=== PATIENT | female | born 1950 | race African-American/Black ===

== ENCOUNTER 2019-07-25 11:36 | Emergency (ER) | payer MEDICARE, OTHER ==
[~2019-07-25] VITALS: Ht 157.5 cm; Wt 62.3 kg
[2019-07-25 11:37] VITALS: BP 133/76
[2019-07-25] MEDS ORDERED: POOR HISTORIAN PO (11:43)
[2019-07-25] MEDS ORDERED: ACETAMINOPHEN 325 MG TABLET PO ONE (13:00)
== END 2019-07-25 13:19 | disposition home or self-care (01) ==
LOC: EMS 11:37
DX: L60.0 Ingrowing nail (principal); F17.210 Nicotine dependence, cigarettes, uncomplicated; Z88.5 Allergy status to narcotic agent
CPT/HCPCS: 99406

== ENCOUNTER 2019-12-09 02:51 | Emergency (ER) | payer MEDICARE, OTHER ==
[~2019-12-09] VITALS: Ht 157.5 cm; Wt 63.6 kg
[2019-12-09 04:31] LABS: BASOPHILS % (AUTO) 3.3 % (0.0-2.0); EOSINOPHILS % (AUTO) 1.6 % (1.0-6.0); HEMATOCRIT 35.9 % (36-46); HEMOGLOBIN 12.3 g/dL (12.0-16.0); LYMPHOCYTES # (AUTO) 1.2 K/uL (1.0-4.8); LYMPHOCYTES % (AUTO) 28.7 % (22.0-44.0); MEAN CORPUSCULAR HEMOGLOBIN 30.5 pg (26.0-34.0); MEAN CORPUSCULAR HGB CONC 34.4 G/dL (31.0-37.0); MEAN CORPUSCULAR VOLUME 89 fL (80-100); MONOCYTES # (AUTO) 0.5 K/uL (0.1-1.0); NEUTROPHILS # (AUTO) 2.2 K/uL (1.8-7.7); NEUTROPHILS % (AUTO) 53.4 % (40.0-70.0); PLATELET COUNT (AUTO) 232 K/uL (150-450); RED BLOOD CELL COUNT(AUTO) 4.05 MIL/uL (4.00-5.20); RED CELL DISTRIBUTION WIDTH 14.8 % (11.5-14.5)
[2019-12-09 04:36] LABS: CALCIUM, TOTAL 9.3 mg/dL (8.8-10.5); CREATININE 1.19 mg/dL (0.60-1.30); POTASSIUM 3.7 mmol/L (3.5-5.1)
[2019-12-09 04:40] LABS: INR 1.1 (0.9-1.1); PROTHROMBIN TIME 11.3 SEC (9.4-11.6)
[2019-12-09 05:00] LABS: ALBUMIN 3.7 g/dL (3.4-5.0); BILIRUBIN,TOTAL 0.7 mg/dL (0.1-1.0); TOTAL PROTEIN, SERUM 8.8 g/dL (6.4-8.2)
[2019-12-09 05:42] VITALS: BP 119/52
== END 2019-12-09 08:00 | disposition home or self-care (01) ==
LOC: EMS 02:51
DX: R05 Cough (principal); R06.02 Shortness of breath; R07.9 Chest pain, unspecified; I11.0 Hypertensive heart disease with heart failure; I50.9 Heart failure, unspecified; F17.210 Nicotine dependence, cigarettes, uncomplicated; Z20.828 Contact with and (suspected) exposure to other viral communicable diseases; Z88.5 Allergy status to narcotic agent
CPT/HCPCS: 36415; 71045; 80053; 82550; 83880; 84484; 85025; 85610; 85730; 93005; 99285; U0003

== ENCOUNTER 2022-01-05 12:48 | Inpatient (IN) | payer MEDICARE, OTHER ==
[~2022-01-05] VITALS: Ht 157.5 cm; Wt 66.7 kg
[~2022-01-05 12:48] MED LIST: ACET-2247 PO; DOCU-385 PO; FAMO20 PO; FURO20 PO; HEPA500018 SQ; MECL-134 PO
[2022-01-05 13:20] LABS: BASOPHILS % (AUTO) 0.6 % (0.0-2.0); EOSINOPHILS % (AUTO) 0.6 % (1.0-6.0); HEMATOCRIT 34.4 % (36-46); HEMOGLOBIN 11.5 g/dL (12.0-16.0); LYMPHOCYTES # (AUTO) 2.2 K/uL (1.0-4.8); LYMPHOCYTES % (AUTO) 19.3 % (22.0-44.0); MEAN CORPUSCULAR HEMOGLOBIN 29.4 pg (26.0-34.0); MEAN CORPUSCULAR HGB CONC 33.5 G/dL (31.0-37.0); MEAN CORPUSCULAR VOLUME 88 fL (80-100); MONOCYTES # (AUTO) 0.7 K/uL (0.1-1.0); NEUTROPHILS # (AUTO) 8.2 K/uL (1.8-7.7); NEUTROPHILS % (AUTO) 73.5 % (40.0-70.0); PLATELET COUNT (AUTO) 407 K/uL (150-450); RED BLOOD CELL COUNT(AUTO) 3.92 MIL/uL (4.00-5.20); RED CELL DISTRIBUTION WIDTH 13.7 % (11.5-14.5)
[2022-01-05 13:33] LABS: INR 1.1 (0.9-1.1); PROTHROMBIN TIME 11.4 SEC (9.4-11.6)
[2022-01-05 13:45] LABS: CALCIUM, TOTAL 10.6 mg/dL (8.8-10.5); CREATININE 1.15 mg/dL (0.60-1.30); POTASSIUM 3.5 mmol/L (3.5-5.1)
[2022-01-05 13:53] LABS: ALBUMIN 3.6 g/dL (3.4-5.0); BILIRUBIN,TOTAL 0.3 mg/dL (0.1-1.0); TOTAL PROTEIN, SERUM 9.2 g/dL (6.4-8.2)
[2022-01-05] MEDS ORDERED: KETOROLAC TROMETHAMINE 30 MG/ML VIAL IVP ONE (14:30)
[2022-01-05 16:26] LABS: GLUCOSE,POINT OF CARE 79 MG/DL (70-110)
[2022-01-05 18:09] LABS: COVID AG,FIA SOURCE NASAL SWAB
[2022-01-05 20:00] VITALS: BP 148/57
[2022-01-05] MEDS ORDERED: IPRATROPIUM BROMIDE 0.5 MG/2.5 ML NEB SOLUTION NEB PRN (22:00)
[2022-01-05] MEDS ORDERED: MAGNESIUM HYDROXIDE SUSPENSION 30 ML UDCUP PO PRN (22:00)
[2022-01-05] MEDS ORDERED: BISACODYL 10 MG RECTAL RECTAL SUPPOSITORY PR PRN (22:00)
[2022-01-05] MEDS ORDERED: ALBUTEROL SULFATE 2.5 MG/0.5 ML NEB SOLUTION NEB PRN (22:00)
[2022-01-05] MEDS ORDERED: ONDANSETRON HCL 4 MG/2 ML VIAL IVP PRN (22:00)
[2022-01-05] MEDS ORDERED: ACETAMINOPHEN 325 MG TABLET PO PRN (22:15)
[2022-01-06] MEDS: HEPARIN SODIUM,PORCINE 5,000 UNITS/ML VIAL SQ SCH ×4 (00:07→23:21)
[2022-01-06 03:16] VITALS: BP 109/57
[2022-01-06 07:38] VITALS: BP 96/54
[2022-01-06] MEDS: DOCUSATE SODIUM 100 MG CAPSULE PO SCH ×2 (08:19→20:04)
[2022-01-06] MEDS: PANTOPRAZOLE SODIUM 40 MG/VIAL IVP SCH (08:19)
[2022-01-06] MEDS ORDERED: SODIUM CHLORIDE 0.9% 1,000 ML ONE (10:48)
[2022-01-06 15:30] VITALS: BP 96/50
[2022-01-06] MEDS: ACETAMINOPHEN 325 MG TABLET PO PRN (16:40)
[2022-01-06 19:22] VITALS: BP 105/53
[2022-01-06] MEDS: ZOLPIDEM TARTRATE 5 MG TABLET PO PRN (23:34)
[2022-01-07 04:27] VITALS: BP 98/56
[2022-01-07 07:48] VITALS: BP 94/47
[2022-01-07] MEDS: DOCUSATE SODIUM 100 MG CAPSULE PO SCH ×2 (08:31→20:30)
[2022-01-07] MEDS: PANTOPRAZOLE SODIUM 40 MG/VIAL IVP SCH (08:31)
[2022-01-07] MEDS: HEPARIN SODIUM,PORCINE 5,000 UNITS/ML VIAL SQ SCH ×2 (08:31→17:13)
[2022-01-07] MEDS: ACETAMINOPHEN 325 MG TABLET PO PRN ×2 (08:34→20:30)
[2022-01-07 09:41] VITALS: BP 103/55
[2022-01-07 15:36] VITALS: BP 98/51
[2022-01-07 19:40] VITALS: BP 107/50
[2022-01-08] MEDS: HEPARIN SODIUM,PORCINE 5,000 UNITS/ML VIAL SQ SCH ×3 (00:07→15:50)
[2022-01-08] MEDS: ZOLPIDEM TARTRATE 5 MG TABLET PO PRN (01:28)
[2022-01-08 04:05] VITALS: BP 95/58
[2022-01-08 08:00] VITALS: BP 113/60
[2022-01-08] MEDS: DOCUSATE SODIUM 100 MG CAPSULE PO SCH ×2 (08:45→20:45)
[2022-01-08] MEDS: PANTOPRAZOLE SODIUM 40 MG/VIAL IVP SCH (08:45)
[2022-01-08 16:34] VITALS: BP 107/51
[2022-01-08 19:52] VITALS: BP 121/51
[2022-01-08] MEDS: CHOLECALCIFEROL (VIT D3) 2,000 UNITS [50 MCG] TABLET PO SCH (20:45)
[2022-01-09] MEDS: HEPARIN SODIUM,PORCINE 5,000 UNITS/ML VIAL SQ SCH ×3 (00:20→15:27)
[2022-01-09 04:30] VITALS: BP 102/52
[2022-01-09 07:40] VITALS: BP 99/56
[2022-01-09] MEDS: DOCUSATE SODIUM 100 MG CAPSULE PO SCH (08:26)
[2022-01-09] MEDS: CHOLECALCIFEROL (VIT D3) 2,000 UNITS [50 MCG] TABLET PO SCH (08:26)
[2022-01-09] MEDS: PANTOPRAZOLE SODIUM 40 MG/VIAL IVP SCH (08:26)
[2022-01-09] MEDS ORDERED: PANT-31 PO (12:59)
[2022-01-09] MEDS ORDERED: AUD NEB (13:01)
[2022-01-09] MEDS ORDERED: BISA10SU11 PR (13:02)
[2022-01-09] MEDS ORDERED: MAGN-169 PO (13:03)
[2022-01-09] MEDS ORDERED: CHOL200059 PO (13:07)
[2022-01-09 16:03] VITALS: BP 111/56
== END 2022-01-09 16:50 | DRG 544 ==
LOC: EMS 12:50 → 6N 19:15
PROVIDERS: ADMIT Hospitalist; ATTEND Hospitalist
DX: M80.051A Age-related osteoporosis with current pathological fracture, right femur, initial encounter for fracture (principal); F03.90 Unspecified dementia, unspecified severity, without behavioral disturbance, psychotic disturbance, mood disturbance, and anxiety; D72.829 Elevated white blood cell count, unspecified; I11.0 Hypertensive heart disease with heart failure; I50.9 Heart failure, unspecified; I73.9 Peripheral vascular disease, unspecified; J44.9 Chronic obstructive pulmonary disease, unspecified; Z20.822 Contact with and (suspected) exposure to COVID-19; F17.200 Nicotine dependence, unspecified, uncomplicated; Z88.5 Allergy status to narcotic agent
CPT/HCPCS: 70450; 71045; 72125; 72170; 73700; 80053; 82962; 85025; 85610; 85730; 87081; 93005; 97162; 97166; 97530; 97535; 99285; C9113; J1644; J1885; J7030; 36415-L1; 36415-TC

== ENCOUNTER 2024-09-18 12:10 | Inpatient (IN) | payer MEDICARE, OTHER ==
[~2024-09-18] VITALS: Ht 157.5 cm; Wt 81.9 kg
[~2024-09-18 12:10] MED LIST changes: +ALBU2.5V39 NEB; +BISA10SU11 PR; +CHOL200059 PO; -FAMO20 PO; -FURO20 PO; +MAGN-169 PO; -MECL-134 PO; +PANT-31 PO
[2024-09-18] MEDS: KETOROLAC TROMETHAMINE 30 MG/ML VIAL IM ONE (12:42)
[2024-09-18 14:18] LABS: EOSINOPHILS % (AUTO) 0.6 % (1.0-6.0); HEMATOCRIT 37.1 % (36-46); LYMPHOCYTES # (AUTO) 2.9 K/uL (1.0-4.8); MEAN CORPUSCULAR HEMOGLOBIN 29.3 pg (26.0-34.0); MEAN CORPUSCULAR HGB CONC 32.2 G/dL (31.0-37.0); MEAN CORPUSCULAR VOLUME 91 fL (80-100); NEUTROPHILS # (AUTO) 8.1 K/uL (1.8-7.7); NEUTROPHILS % (AUTO) 66.4 % (40.0-70.0); PLATELET COUNT (AUTO) 225 K/uL (150-450); RED BLOOD CELL COUNT(AUTO) 4.08 MIL/uL (4.00-5.20); RED CELL DISTRIBUTION WIDTH 14.7 % (11.5-14.5); WHITE BLOOD COUNT (AUTO) 12.2 K/uL (4.5-11.0)
[2024-09-18 14:27] LABS: ANION GAP 6 mmol/L (8-16); CALCIUM, TOTAL 9.5 mg/dL (8.8-10.5); CARBON DIOXIDE 30 mmol/L (22-29); CHLORIDE 106 mmol/L (98-107); CREATININE 0.74 mg/dL (0.60-1.30); GLOMERULAR FILTR. RATE CALC > 60 mL/min (>60); GLUCOSE,RANDOM 76 mg/dL (70-110); POTASSIUM 4.3 mmol/L (3.5-5.1); SODIUM SERUM 141 mmol/L (136-145); UREA NITROGEN, BLOOD 18 mg/dL (7-18)
[2024-09-18] MEDS ORDERED: ONDANSETRON HCL 4 MG/2 ML VIAL IVP PRN (14:45)
[2024-09-18 14:50] LABS: APPEARANCE,URINE CLEAR (CLEAR); BILIRUBIN,URINE NEGATIVE (NEGATIVE); COLOR,URINE LIGHT YELLOW (YELLOW); GLUCOSE, URINE (UA) NEGATIVE (NEGATIVE); KETONES,URINE TRACE mg/dL (NEGATIVE); LEUKOCYTE ESTERASE ,URINE TRACE (NEGATIVE); NITRATE,URINE NEGATIVE (NEGATIVE); OCCULT BLOOD,URINE SMALL (NEGATIVE); PH,URINE 6.5 (5.0-8.0); PROTEIN,URINE 30-70 mg/dL (NEGATIVE); SPECIFIC GRAVITIY, URINE 1.022 (1.003-1.030); UROBILINOGEN,URINE <=1.0 mg/dL (<=1.0)
[2024-09-18 15:15] LABS: BACTERIA,URINE Few /HPF (None Seen); SQUAMOUS EPITHELIAL CELL,UR Few /LPF (None Seen)
[2024-09-18] MEDS: RINGERS SOLUTION,LACTATED 1,000 ML IV SCH (15:18)
[2024-09-18] MEDS: CefTRIAXone 1 GM/DEXTROSE 50 ML IV SCH (15:28)
[2024-09-18] MEDS: HEPARIN SODIUM,PORCINE 5,000 UNITS/ML VIAL SQ SCH (15:28)
[2024-09-18] MEDS: ACETAMINOPHEN 325 MG TABLET PO PRN (15:28)
[2024-09-18] MEDS ORDERED: 0.9% SODIUM CHLORIDE 10 ML SYRINGE IVP ONE (15:44)
[2024-09-18] MEDS ORDERED: IOHEXOL 350 MG/ML 100 ML VIAL ONE ×3 (15:44→23:10)
[2024-09-18] MEDS ORDERED: SODIUM CHLORIDE 0.9% 0 ML ONE (15:45)
[2024-09-18] MEDS ORDERED: SODIUM CHLORIDE 0.9% 100 ML ONE ×2 (17:23→23:10)
[2024-09-18 17:26] LABS: TROPONIN I-HIGH SENSITIVITY 28 ng/L (<51)
[2024-09-18 19:52] VITALS: BP 134/62; PULSE 63; RESP 17; TEMP 98.2; O2SAT 100
[2024-09-18] MEDS ORDERED: CefTRIAXone 1 GM/DEXTROSE 50 ML IV SCH (22:15)
[2024-09-18 22:42] VITALS: BP 143/72; RESP 17; O2SAT 99
[2024-09-18 22:58] LABS: CHOL/HDL RATIO 1.8 (3.9-5.7); CHOLESTEROL 226 mg/dL (131-200); HDL CHOLESTEROL 127 mg/dL (40-60); LDL CHOL (CALC.) 93 mg/dL (0-130); TRIGLYCERIDES 30 mg/dL (15-150)
[2024-09-18 23:14] VITALS: BP 139/69; PULSE 64; RESP 17; TEMP 98.1; O2SAT 100
[2024-09-19] MEDS: ASPIRIN 81 MG CHEWABLE TABLET PO ONE (00:12)
[2024-09-19] MEDS: ATORVASTATIN CALCIUM 40 MG TABLET PO ONE (00:13)
[2024-09-19] MEDS: ACETAMINOPHEN 500 MG TABLET PO SCH (00:13)
[2024-09-19] MEDS: AZITHROMYCIN 500 MG/NS 250 ML IV SCH (00:14)
[2024-09-19] MEDS ORDERED: SODIUM CHLORIDE 0.9% 250 ML IV ONE (00:23)
[2024-09-19 03:51] VITALS: BP 137/67; PULSE 69; RESP 17; TEMP 98.2; O2SAT 100
[2024-09-19 05:56] LABS: EOSINOPHILS % (AUTO) 2.3 % (1.0-6.0); HEMATOCRIT 35.6 % (36-46); HEMOGLOBIN 11.7 g/dL (12.0-16.0); LYMPHOCYTES # (AUTO) 2.4 K/uL (1.0-4.8); LYMPHOCYTES % (AUTO) 34.8 % (22.0-44.0); MEAN CORPUSCULAR HGB CONC 32.8 G/dL (31.0-37.0); MEAN CORPUSCULAR VOLUME 91 fL (80-100); MONOCYTES # (AUTO) 0.5 K/uL (0.1-1.0); MONOCYTES % (AUTO) 7.7 % (2.0-9.0); NEUTROPHILS # (AUTO) 3.8 K/uL (1.8-7.7); NEUTROPHILS % (AUTO) 54.2 % (40.0-70.0); PLATELET COUNT (AUTO) 223 K/uL (150-450); RED BLOOD CELL COUNT(AUTO) 3.89 MIL/uL (4.00-5.20); RED CELL DISTRIBUTION WIDTH 14.5 % (11.5-14.5)
[2024-09-19 06:06] LABS: ANION GAP 6 mmol/L (8-16); CARBON DIOXIDE 28 mmol/L (22-29); CHLORIDE 104 mmol/L (98-107); CREATININE 0.84 mg/dL (0.60-1.30); GLOMERULAR FILTR. RATE CALC > 60 mL/min (>60); GLUCOSE,RANDOM 78 mg/dL (70-110); POTASSIUM 3.9 mmol/L (3.5-5.1); SODIUM SERUM 138 mmol/L (136-145); UREA NITROGEN, BLOOD 19 mg/dL (7-18)
[2024-09-19 07:38] VITALS: BP 147/84; PULSE 69; RESP 18; TEMP 97.7; O2SAT 100
[2024-09-19] MEDS: CLOPIDOGREL BISULFATE 75 MG TABLET PO SCH (10:31)
[2024-09-19] MEDS: ASPIRIN 81 MG CHEWABLE TABLET PO SCH (10:31)
[2024-09-19 11:28] VITALS: BP 128/82; PULSE 83; RESP 18; TEMP 97.7; O2SAT 98
[2024-09-19 14:44] VITALS: BP 130/86; PULSE 65
[2024-09-19 15:27] VITALS: BP 133/74; PULSE 77; RESP 18; TEMP 98; O2SAT 97
[2024-09-19 20:00] VITALS: BP 131/59; PULSE 75; RESP 16; TEMP 98.3; O2SAT 96
[2024-09-19] MEDS: ATORVASTATIN CALCIUM 40 MG TABLET PO SCH (21:18)
[2024-09-20 07:56] VITALS: BP 134/81; PULSE 60; RESP 19; TEMP 98.2; O2SAT 100
[2024-09-20 10:33] LABS: BASOPHILS % (AUTO) 0.7 % (0.0-2.0); EOSINOPHILS % (AUTO) 2.1 % (1.0-6.0); HEMATOCRIT 35.4 % (36-46); HEMOGLOBIN 11.6 g/dL (12.0-16.0); LYMPHOCYTES # (AUTO) 1.9 K/uL (1.0-4.8); LYMPHOCYTES % (AUTO) 22.6 % (22.0-44.0); MEAN CORPUSCULAR HEMOGLOBIN 29.7 pg (26.0-34.0); MEAN CORPUSCULAR HGB CONC 32.9 G/dL (31.0-37.0); MEAN CORPUSCULAR VOLUME 90 fL (80-100); MONOCYTES # (AUTO) 0.5 K/uL (0.1-1.0); MONOCYTES % (AUTO) 6.6 % (2.0-9.0); NEUTROPHILS # (AUTO) 5.6 K/uL (1.8-7.7); PLATELET COUNT (AUTO) 237 K/uL (150-450); RED BLOOD CELL COUNT(AUTO) 3.92 MIL/uL (4.00-5.20); RED CELL DISTRIBUTION WIDTH 14.4 % (11.5-14.5); WHITE BLOOD COUNT (AUTO) 8.2 K/uL (4.5-11.0)
[2024-09-20 10:41] VITALS: BP 156/80; PULSE 60; RESP 18; TEMP 98.6; O2SAT 100
[2024-09-20 10:57] LABS: ANION GAP 8 mmol/L (8-16); CALCIUM, TOTAL 9.1 mg/dL (8.8-10.5); CARBON DIOXIDE 26 mmol/L (22-29); CHLORIDE 104 mmol/L (98-107); CREATININE 0.91 mg/dL (0.60-1.30); GLOMERULAR FILTR. RATE CALC > 60 mL/min (>60); GLUCOSE,RANDOM 117 mg/dL (70-110); POTASSIUM 3.9 mmol/L (3.5-5.1); SODIUM SERUM 138 mmol/L (136-145); UREA NITROGEN, BLOOD 15 mg/dL (7-18)
[2024-09-20 14:55] VITALS: BP 160/68; PULSE 62; RESP 18; TEMP 98.4; O2SAT 99
[2024-09-20 19:47] VITALS: BP 145/50; PULSE 65; RESP 19; TEMP 98.4; O2SAT 100
[2024-09-20 23:39] VITALS: BP 132/72; PULSE 79; RESP 18; TEMP 98.2; O2SAT 99
[2024-09-21 04:18] VITALS: BP 146/81; PULSE 74; RESP 19; TEMP 98.1; O2SAT 98
[2024-09-21 07:49] VITALS: BP 114/75; PULSE 61; RESP 17; TEMP 99; O2SAT 99
[2024-09-21 12:13] VITALS: BP 147/61; PULSE 73; RESP 19; TEMP 98.2; O2SAT 100
[2024-09-21] MEDS ORDERED: CLOP75TA32 PO (16:21)
[2024-09-21] MEDS ORDERED: LEVO750T68 PO (16:21)
[2024-09-21] MEDS ORDERED: ASPI-1450 PO (16:21)
[2024-09-21] MEDS ORDERED: ATOR40TA71 PO (16:21)
[2024-09-21 17:14] VITALS: BP 136/71; PULSE 72; RESP 19; TEMP 98.8; O2SAT 99
[2024-09-21 20:21] VITALS: BP 150/64; PULSE 76; RESP 18; TEMP 98.1; O2SAT 98
[2024-09-21 23:13] VITALS: BP 140/94; PULSE 67; RESP 18; TEMP 98.2; O2SAT 99
[2024-09-22 04:55] VITALS: BP 158/88; PULSE 60; RESP 17; TEMP 98.2; O2SAT 97
[2024-09-22 07:36] VITALS: BP 164/69; PULSE 60; RESP 18; TEMP 98; O2SAT 94
[2024-09-22 11:11] VITALS: BP 139/87; PULSE 72; RESP 18; TEMP 98.2; O2SAT 96
[2024-09-22 15:58] VITALS: BP 142/76; PULSE 66; RESP 18; TEMP 97.9; O2SAT 97
== END 2024-09-22 18:45 | DRG 194 ==
LOC: EMS 12:25 → EDH 14:44 → 5S 20:02
PROVIDERS: ADMIT Internal Medicine; ATTEND Internal Medicine
DX: J18.9 Pneumonia, unspecified organism (principal); I69.351 Hemiplegia and hemiparesis following cerebral infarction affecting right dominant side; S72.011K Unspecified intracapsular fracture of right femur, subsequent encounter for closed fracture with nonunion; J44.9 Chronic obstructive pulmonary disease, unspecified; F03.90 Unspecified dementia, unspecified severity, without behavioral disturbance, psychotic disturbance, mood disturbance, and anxiety; I50.9 Heart failure, unspecified; I11.0 Hypertensive heart disease with heart failure; X58.XXXD Exposure to other specified factors, subsequent encounter; Z88.5 Allergy status to narcotic agent; Z87.891 Personal history of nicotine dependence; Z99.3 Dependence on wheelchair; Z86.73 Personal history of transient ischemic attack (TIA), and cerebral infarction without residual deficits
CPT/HCPCS: 70450; 70551; 71045; 71260; 72170; 72193; 74160; 74177; 80048; 80061; 81001; 83735; 84484; 85025; 92610; 93005; 93306; 96372; 97110; 97163; 97167; 97530; 97535; 99285; J0456; J0696; J1644; J1885; J7050; J7120; 36415-L1; 36415-TC

== ENCOUNTER 2024-09-27 05:08 | Inpatient (IN) | payer MEDICARE, OTHER ==
[~2024-09-27] VITALS: Ht 158.8 cm; Wt 79.2 kg
[2024-09-27] VITALS (7 sets, daily range): BP systolic 98–129; BP diastolic 54–92; PULSE 69–109; RESP 18–20; TEMP 97.3–98.4; O2SAT 95–100
[~2024-09-27 05:08] MED LIST changes: +ASPI-1450 PO; +ATOR40TA71 PO; +CLOP75TA32 PO; -HEPA500018 SQ; +LEVO750T68 PO
[2024-09-27 05:28] LABS: BASOPHILS % (AUTO) 1.1 % (0.0-2.0); EOSINOPHILS % (AUTO) 2.4 % (1.0-6.0); HEMATOCRIT 30.5 % (36-46); HEMOGLOBIN 9.7 g/dL (12.0-16.0); LYMPHOCYTES # (AUTO) 4.2 K/uL (1.0-4.8); MEAN CORPUSCULAR HEMOGLOBIN 29.4 pg (26.0-34.0); MEAN CORPUSCULAR HGB CONC 31.9 G/dL (31.0-37.0); MEAN CORPUSCULAR VOLUME 92 fL (80-100); MONOCYTES # (AUTO) 0.8 K/uL (0.1-1.0); MONOCYTES % (AUTO) 7.1 % (2.0-9.0); NEUTROPHILS # (AUTO) 6.3 K/uL (1.8-7.7); NEUTROPHILS % (AUTO) 53.4 % (40.0-70.0); PLATELET COUNT (AUTO) 243 K/uL (150-450); RED BLOOD CELL COUNT(AUTO) 3.31 MIL/uL (4.00-5.20); WHITE BLOOD COUNT (AUTO) 11.8 K/uL (4.5-11.0)
[2024-09-27 05:31] LABS: ANION GAP 4 mmol/L (8-16); CALCIUM, TOTAL 9.4 mg/dL (8.8-10.5); CARBON DIOXIDE 27 mmol/L (22-29); CHLORIDE 101 mmol/L (98-107); CREATININE 1.06 mg/dL (0.60-1.30); GLOMERULAR FILTR. RATE CALC > 60 mL/min (>60); GLUCOSE,RANDOM 140 mg/dL (70-110); SODIUM SERUM 132 mmol/L (136-145); UREA NITROGEN, BLOOD 26 mg/dL (7-18)
[2024-09-27 05:36] LABS: PROTHROMBIN TIME 10.8 SEC (9.4-11.6)
[2024-09-27 05:38] LABS: ALBUMIN 2.7 g/dL (3.4-5.0); BILIRUBIN,DIRECT 0.1 mg/dL (0.00-0.20); BILIRUBIN,TOTAL 0.4 mg/dL (0.1-1.0); TOTAL PROTEIN, SERUM 7.2 g/dL (6.4-8.2)
[2024-09-27 05:41] LABS: CREATINE KINASE, TOTAL ONLY 184 U/L (26-192); TROPONIN I-HIGH SENSITIVITY 12 ng/L (<51)
[2024-09-27] MEDS ORDERED: ONDANSETRON HCL 4 MG/2 ML VIAL ONE (05:41)
[2024-09-27] MEDS: SODIUM CHLORIDE 0.9% 1,000 ML IV ONE (05:44)
[2024-09-27] MEDS: ONDANSETRON HCL 4 MG/2 ML VIAL IVP ONE (05:45)
[2024-09-27] MEDS: PANTOPRAZOLE SODIUM 40 MG/VIAL IVP ONE (05:45)
[2024-09-27] MEDS: PANTOPRAZOLE SODIUM 80 MG in SODIUM CHLORIDE 0.9% 100 ML IV SCH (05:46)
[2024-09-27 05:58] LABS: B-TYPE NATRIURETIC PEPTIDE 8 pg/mL (0-100)
[2024-09-27] MEDS ORDERED: PANTOPRAZOLE SODIUM 80 MG in SODIUM CHLORIDE 0.9% 100 ML IV SCH (06:00)
[2024-09-27] MEDS ORDERED: ONDANSETRON HCL 4 MG/2 ML VIAL IVP PRN (06:00)
[2024-09-27] MEDS: DOCUSATE SODIUM 100 MG CAPSULE PO SCH (09:00)
[2024-09-27 12:35] LABS: BASOPHILS % (AUTO) 0.2 % (0.0-2.0); EOSINOPHILS % (AUTO) 0 % (1.0-6.0); HEMATOCRIT 27.6 % (36-46); HEMOGLOBIN 8.9 g/dL (12.0-16.0); LYMPHOCYTES # (AUTO) 1.6 K/uL (1.0-4.8); LYMPHOCYTES % (AUTO) 7.6 % (22.0-44.0); MEAN CORPUSCULAR HGB CONC 32.3 G/dL (31.0-37.0); MEAN CORPUSCULAR VOLUME 93 fL (80-100); MONOCYTES # (AUTO) 0.6 K/uL (0.1-1.0); MONOCYTES % (AUTO) 2.8 % (2.0-9.0); NEUTROPHILS # (AUTO) 18.3 K/uL (1.8-7.7); PLATELET COUNT (AUTO) 259 K/uL (150-450); RED BLOOD CELL COUNT(AUTO) 2.98 MIL/uL (4.00-5.20); RED CELL DISTRIBUTION WIDTH 14.7 % (11.5-14.5); WHITE BLOOD COUNT (AUTO) 20.5 K/uL (4.5-11.0)
[2024-09-27 12:42] LABS: NEUTROPHILS % (AUTO) 89.4 % (40.0-70.0)
[2024-09-27] MEDS: PEG 3350/NA SULF,BICARB,CL/KCL 4000 ML SOLUTION PO ONE (17:05)
[2024-09-27 21:12] LABS: BASOPHILS % (AUTO) 0.5 % (0.0-2.0); EOSINOPHILS % (AUTO) 0 % (1.0-6.0); HEMATOCRIT 26.7 % (36-46); HEMOGLOBIN 8.6 g/dL (12.0-16.0); LYMPHOCYTES # (AUTO) 2.9 K/uL (1.0-4.8); LYMPHOCYTES % (AUTO) 14.6 % (22.0-44.0); MEAN CORPUSCULAR HEMOGLOBIN 29.4 pg (26.0-34.0); MEAN CORPUSCULAR HGB CONC 32.1 G/dL (31.0-37.0); MEAN CORPUSCULAR VOLUME 92 fL (80-100); MONOCYTES # (AUTO) 0.6 K/uL (0.1-1.0); MONOCYTES % (AUTO) 3.2 % (2.0-9.0); NEUTROPHILS # (AUTO) 15.9 K/uL (1.8-7.7); NEUTROPHILS % (AUTO) 81.7 % (40.0-70.0); PLATELET COUNT (AUTO) 269 K/uL (150-450); RED BLOOD CELL COUNT(AUTO) 2.92 MIL/uL (4.00-5.20); RED CELL DISTRIBUTION WIDTH 15.1 % (11.5-14.5); WHITE BLOOD COUNT (AUTO) 19.5 K/uL (4.5-11.0)
[2024-09-28 03:53] VITALS: BP 114/67; PULSE 88; RESP 19; TEMP 98.2; O2SAT 97
[2024-09-28] MEDS ORDERED: LIDOCAINE/PF 2% 5 ML VIAL ONE (05:25)
[2024-09-28] MEDS ORDERED: PROPOFOL 1% 20 ML VIAL IVP ONE (05:25)
[2024-09-28 06:05] LABS: BASOPHILS % (AUTO) 0.3 % (0.0-2.0); EOSINOPHILS % (AUTO) 0.1 % (1.0-6.0); HEMATOCRIT 23.1 % (36-46); HEMOGLOBIN 7.5 g/dL (12.0-16.0); LYMPHOCYTES % (AUTO) 21.6 % (22.0-44.0); MEAN CORPUSCULAR HEMOGLOBIN 29.7 pg (26.0-34.0); MEAN CORPUSCULAR HGB CONC 32.5 G/dL (31.0-37.0); MEAN CORPUSCULAR VOLUME 92 fL (80-100); MONOCYTES # (AUTO) 0.8 K/uL (0.1-1.0); NEUTROPHILS # (AUTO) 9.9 K/uL (1.8-7.7); PLATELET COUNT (AUTO) 222 K/uL (150-450); RED BLOOD CELL COUNT(AUTO) 2.53 MIL/uL (4.00-5.20); RED CELL DISTRIBUTION WIDTH 14.9 % (11.5-14.5); WHITE BLOOD COUNT (AUTO) 13.7 K/uL (4.5-11.0)
[2024-09-28 06:58] LABS: CALCIUM, TOTAL 8.8 mg/dL (8.8-10.5); CREATININE 1.44 mg/dL (0.60-1.30); POTASSIUM 4.6 mmol/L (3.5-5.1)
[2024-09-28 07:25] VITALS: BP 109/71; PULSE 88; RESP 18; TEMP 97.5; O2SAT 98
[2024-09-28] MEDS ORDERED: FLUMAZENIL 0.1 MG/ML 5 ML VIAL IVP ONE (09:27)
[2024-09-28] MEDS ORDERED: SODIUM CHLORIDE 0.9% 1,000 ML ONE (09:27)
[2024-09-28] MEDS ORDERED: NALOXONE HCL 0.4 MG/ML VIAL ONE (09:27)
[2024-09-28] MEDS ORDERED: DiphenhydrAMINE HCL 50 MG/ML VIAL ONE (09:27)
[2024-09-28] MEDS ORDERED: EPINEPHrine 1:10,000 [1 MG/10 ML] SYRINGE ONE (09:28)
[2024-09-28] MEDS ORDERED: ATROPINE SULFATE 0.1 MG/ML 10 ML SYRINGE IVP ONE (09:28)
[2024-09-28] MEDS ORDERED: SODIUM TETRADECYL SULFATE 3% 60 MG/2 ML VIAL IVP ONE (09:28)
[2024-09-28] MEDS ORDERED: FentaNYL CITRATE PF 100 MCG/2 ML VIAL ONE (09:29)
[2024-09-28] MEDS ORDERED: MIDAZOLAM HCL 2 MG/2 ML VIAL ONE (09:30)
[2024-09-28 13:44] VITALS: BP 135/68; PULSE 80; RESP 18; TEMP 97.6; O2SAT 99
[2024-09-28 16:08] LABS: APPEARANCE,URINE CLEAR (CLEAR); BILIRUBIN,URINE NEGATIVE (NEGATIVE); COLOR,URINE LIGHT YELLOW (YELLOW); GLUCOSE, URINE (UA) NEGATIVE (NEGATIVE); KETONES,URINE NEGATIVE (NEGATIVE); LEUKOCYTE ESTERASE ,URINE NEGATIVE (NEGATIVE); NITRATE,URINE NEGATIVE (NEGATIVE); OCCULT BLOOD,URINE NEGATIVE (NEGATIVE); PH,URINE 5.5 (5.0-8.0); PROTEIN,URINE NEGATIVE (NEGATIVE); SPECIFIC GRAVITIY, URINE 1.019 (1.003-1.030); UROBILINOGEN,URINE <=1.0 mg/dL (<=1.0)
[2024-09-28 20:21] VITALS: BP 145/67; PULSE 107; RESP 18; TEMP 98.8; O2SAT 100
[2024-09-28] MEDS: ACETAMINOPHEN 325 MG TABLET PO PRN (20:47)
[2024-09-28] MEDS: AMIODARONE HCL 150 MG in DEXTROSE 5%-WATER 97 ML IV ONE (22:41)
[2024-09-28 23:00] VITALS: BP 115/55; PULSE 70; RESP 20; TEMP 98.7; O2SAT 100
[2024-09-28] MEDS: AMIODARONE HCL 360 MG in DEXTROSE 5%-WATER 242.8 ML IV ONE (23:00)
[2024-09-28 23:49] VITALS: BP 116/66; PULSE 84; RESP 18; TEMP 98.6; O2SAT 97
[2024-09-29 04:29] VITALS: BP 103/51; PULSE 68; RESP 18; TEMP 97.7; O2SAT 97
[2024-09-29] MEDS: AMIODARONE HCL 540 MG in DEXTROSE 5%-WATER 250 ML IV ONE (05:29)
[2024-09-29 07:18] LABS: BASOPHILS % (AUTO) 0.5 % (0.0-2.0); EOSINOPHILS % (AUTO) 0.8 % (1.0-6.0); HEMATOCRIT 21.4 % (36-46); LYMPHOCYTES # (AUTO) 3.4 K/uL (1.0-4.8); MEAN CORPUSCULAR HEMOGLOBIN 30.2 pg (26.0-34.0); MEAN CORPUSCULAR HGB CONC 32.5 G/dL (31.0-37.0); MEAN CORPUSCULAR VOLUME 93 fL (80-100); MONOCYTES # (AUTO) 0.9 K/uL (0.1-1.0); MONOCYTES % (AUTO) 7.2 % (2.0-9.0); NEUTROPHILS # (AUTO) 8.5 K/uL (1.8-7.7); NEUTROPHILS % (AUTO) 65.5 % (40.0-70.0); PLATELET COUNT (AUTO) 220 K/uL (150-450); RED CELL DISTRIBUTION WIDTH 15.4 % (11.5-14.5)
[2024-09-29 07:38] LABS: CALCIUM, TOTAL 8.9 mg/dL (8.8-10.5); CREATININE 1.12 mg/dL (0.60-1.30); POTASSIUM 4.2 mmol/L (3.5-5.1)
[2024-09-29 07:54] VITALS: BP 113/55; PULSE 64; RESP 18; TEMP 97.9; O2SAT 97
[2024-09-29 11:13] VITALS: BP 116/62; PULSE 68; RESP 18; TEMP 98.2; O2SAT 100
[2024-09-29 15:29] VITALS: BP 111/76; PULSE 76; RESP 18; TEMP 98.1; O2SAT 96
[2024-09-29] MEDS: AMIODARONE HCL 200 MG TABLET PO SCH (18:42)
[2024-09-29 20:38] VITALS: BP 123/56; PULSE 77; RESP 17; TEMP 98.2; O2SAT 100
[2024-09-29] MEDS ORDERED: AMIODARONE HCL 750 MG in DEXTROSE 5%-WATER 485 ML IV SCH (21:30)
[2024-09-30] VITALS (15 sets, daily range): BP systolic 111–149; BP diastolic 50–93; PULSE 61–99; RESP 16–19; TEMP 97.9–98.8; O2SAT 95–100
[2024-09-30 06:51] LABS: BASOPHILS % (AUTO) 0.6 % (0.0-2.0); EOSINOPHILS % (AUTO) 1.3 % (1.0-6.0); LYMPHOCYTES # (AUTO) 3.1 K/uL (1.0-4.8); MEAN CORPUSCULAR VOLUME 94 fL (80-100); MONOCYTES # (AUTO) 0.8 K/uL (0.1-1.0); MONOCYTES % (AUTO) 6.4 % (2.0-9.0); NEUTROPHILS # (AUTO) 8.2 K/uL (1.8-7.7); NEUTROPHILS % (AUTO) 66.7 % (40.0-70.0); PLATELET COUNT (AUTO) 225 K/uL (150-450); RED BLOOD CELL COUNT(AUTO) 1.96 MIL/uL (4.00-5.20); RED CELL DISTRIBUTION WIDTH 15.3 % (11.5-14.5); WHITE BLOOD COUNT (AUTO) 12.2 K/uL (4.5-11.0)
[2024-09-30 07:08] LABS: HEMATOCRIT 18.3 % (36-46); HEMOGLOBIN 5.9 g/dL (12.0-16.0)
[2024-09-30 07:31] LABS: ALANINE AMINOTRANSFERASE 51 U/L (12-78); ALBUMIN 2.8 g/dL (3.4-5.0); ALKALINE PHOSPHATASE 45 U/L (46-116); ANION GAP 4 mmol/L (8-16); ASPARTATE AMINOTRANSFERASE 31 U/L (15-37); BILIRUBIN,TOTAL 0.3 mg/dL (0.1-1.0); CALCIUM, TOTAL 8.7 mg/dL (8.8-10.5); CARBON DIOXIDE 30 mmol/L (22-29); CHLORIDE 102 mmol/L (98-107); CREATININE 0.88 mg/dL (0.60-1.30); GLOMERULAR FILTR. RATE CALC > 60 mL/min (>60); GLUCOSE,RANDOM 89 mg/dL (70-110); POTASSIUM 4.1 mmol/L (3.5-5.1); SODIUM SERUM 136 mmol/L (136-145); THYROID STIMULATING HORMONE 4.28 uIU/mL (0.36-3.74); TOTAL PROTEIN, SERUM 6.6 g/dL (6.4-8.2); TROPONIN I-HIGH SENSITIVITY 43 ng/L (<51); UREA NITROGEN, BLOOD 21 mg/dL (7-18)
[2024-09-30 07:39] LABS: B-TYPE NATRIURETIC PEPTIDE 33 pg/mL (0-100)
[2024-09-30] MEDS: PANTOPRAZOLE SODIUM 40 MG/VIAL IVP SCH (11:45)
[2024-09-30] MEDS ORDERED: SODIUM CHLORIDE 0.9% 250 ML IV ONE (14:03)
[2024-09-30 20:01] LABS: BASOPHILS % (AUTO) 0.5 % (0.0-2.0); EOSINOPHILS % (AUTO) 1.1 % (1.0-6.0); HEMATOCRIT 22.8 % (36-46); HEMOGLOBIN 7.5 g/dL (12.0-16.0); LYMPHOCYTES # (AUTO) 3.1 K/uL (1.0-4.8); LYMPHOCYTES % (AUTO) 22.7 % (22.0-44.0); MEAN CORPUSCULAR HEMOGLOBIN 30.7 pg (26.0-34.0); MEAN CORPUSCULAR HGB CONC 32.8 G/dL (31.0-37.0); MEAN CORPUSCULAR VOLUME 94 fL (80-100); MONOCYTES % (AUTO) 7.7 % (2.0-9.0); NEUTROPHILS # (AUTO) 9.2 K/uL (1.8-7.7); PLATELET COUNT (AUTO) 247 K/uL (150-450); RED BLOOD CELL COUNT(AUTO) 2.44 MIL/uL (4.00-5.20); WHITE BLOOD COUNT (AUTO) 13.5 K/uL (4.5-11.0)
[2024-09-30] MEDS: AMIODARONE HCL 200 MG TABLET PO SCH (21:00)
[2024-10-01 00:26] VITALS: BP 148/64; PULSE 82; RESP 18; O2SAT 95
[2024-10-01 05:19] VITALS: BP 154/66; PULSE 81; RESP 20; TEMP 97.6; O2SAT 94
[2024-10-01 08:01] VITALS: BP 143/68; PULSE 76; RESP 19; TEMP 98; O2SAT 96
[2024-10-01 11:11] VITALS: BP 141/76; PULSE 78; RESP 18; TEMP 98.1; O2SAT 97
[2024-10-01 15:41] VITALS: BP 121/69; PULSE 68; RESP 19; TEMP 98.1; O2SAT 96
[2024-10-01 20:03] VITALS: BP 127/57; PULSE 63; RESP 17; TEMP 98.2; O2SAT 100
[2024-10-02] VITALS (9 sets, daily range): BP systolic 117–143; BP diastolic 55–75; PULSE 61–77; RESP 16–20; TEMP 97.5–98.4; O2SAT 86–100
[2024-10-02 07:41] LABS: BASOPHILS % (AUTO) 0.9 % (0.0-2.0); EOSINOPHILS % (AUTO) 3.4 % (1.0-6.0); HEMATOCRIT 26.8 % (36-46); LYMPHOCYTES # (AUTO) 2.9 K/uL (1.0-4.8); LYMPHOCYTES % (AUTO) 29.5 % (22.0-44.0); MEAN CORPUSCULAR HEMOGLOBIN 31.9 pg (26.0-34.0); MEAN CORPUSCULAR HGB CONC 33.5 G/dL (31.0-37.0); MEAN CORPUSCULAR VOLUME 95 fL (80-100); MONOCYTES # (AUTO) 0.6 K/uL (0.1-1.0); MONOCYTES % (AUTO) 6.4 % (2.0-9.0); NEUTROPHILS # (AUTO) 5.9 K/uL (1.8-7.7); NEUTROPHILS % (AUTO) 59.8 % (40.0-70.0); PLATELET COUNT (AUTO) 313 K/uL (150-450); RED BLOOD CELL COUNT(AUTO) 2.81 MIL/uL (4.00-5.20); RED CELL DISTRIBUTION WIDTH 15.1 % (11.5-14.5); WHITE BLOOD COUNT (AUTO) 9.9 K/uL (4.5-11.0)
[2024-10-02 07:55] LABS: ANION GAP 6 mmol/L (8-16); CALCIUM, TOTAL 9.4 mg/dL (8.8-10.5); CARBON DIOXIDE 28 mmol/L (22-29); CHLORIDE 103 mmol/L (98-107); GLOMERULAR FILTR. RATE CALC > 60 mL/min (>60); GLUCOSE,RANDOM 76 mg/dL (70-110); POTASSIUM 4.2 mmol/L (3.5-5.1); SODIUM SERUM 137 mmol/L (136-145); UREA NITROGEN, BLOOD 13 mg/dL (7-18)
[2024-10-02] MEDS: FERROUS SULFATE 325 MG EC TABLET PO SCH (17:39)
[2024-10-02] MEDS: PANTOPRAZOLE SODIUM 40 MG DR TABLET PO SCH (20:10)
[2024-10-03 03:47] VITALS: BP 107/66; PULSE 66; RESP 17; TEMP 98.6; O2SAT 97
[2024-10-03] MEDS: MULTIVITAMINS WITH MINERALS, THERAPEUTIC TABLET PO SCH (08:48)
[2024-10-03 09:05] VITALS: BP 122/59; PULSE 63; RESP 16; TEMP 98.1; O2SAT 100
[2024-10-03 12:00] VITALS: BP 123/52; PULSE 67; RESP 18; TEMP 98.1; O2SAT 100
[2024-10-03 16:00] VITALS: BP 116/75; PULSE 68; RESP 16; TEMP 98.2; O2SAT 100
[2024-10-03 20:00] VITALS: BP 115/61; PULSE 64; RESP 18; TEMP 98.6; O2SAT 98
[2024-10-04 00:05] VITALS: BP 117/57; PULSE 65; RESP 18; TEMP 98.4; O2SAT 98
[2024-10-04 04:00] VITALS: BP 116/56; PULSE 61; RESP 18; TEMP 98.3; O2SAT 100
[2024-10-04 07:07] LABS: BASOPHILS % (AUTO) 0.8 % (0.0-2.0); EOSINOPHILS % (AUTO) 2.7 % (1.0-6.0); HEMATOCRIT 27.4 % (36-46); HEMOGLOBIN 9.1 g/dL (12.0-16.0); LYMPHOCYTES # (AUTO) 2.7 K/uL (1.0-4.8); LYMPHOCYTES % (AUTO) 30.1 % (22.0-44.0); MEAN CORPUSCULAR HEMOGLOBIN 31.5 pg (26.0-34.0); MEAN CORPUSCULAR HGB CONC 33.3 G/dL (31.0-37.0); MEAN CORPUSCULAR VOLUME 95 fL (80-100); MONOCYTES # (AUTO) 0.6 K/uL (0.1-1.0); NEUTROPHILS # (AUTO) 5.4 K/uL (1.8-7.7); NEUTROPHILS % (AUTO) 59.4 % (40.0-70.0); PLATELET COUNT (AUTO) 362 K/uL (150-450); RED BLOOD CELL COUNT(AUTO) 2.89 MIL/uL (4.00-5.20); RED CELL DISTRIBUTION WIDTH 16.3 % (11.5-14.5); WHITE BLOOD COUNT (AUTO) 9.1 K/uL (4.5-11.0)
[2024-10-04 07:12] LABS: ANION GAP 9 mmol/L (8-16); CALCIUM, TOTAL 9.6 mg/dL (8.8-10.5); CARBON DIOXIDE 27 mmol/L (22-29); CHLORIDE 101 mmol/L (98-107); CREATININE 0.86 mg/dL (0.60-1.30); GLOMERULAR FILTR. RATE CALC > 60 mL/min (>60); GLUCOSE,RANDOM 79 mg/dL (70-110); POTASSIUM 4.2 mmol/L (3.5-5.1); SODIUM SERUM 137 mmol/L (136-145); UREA NITROGEN, BLOOD 17 mg/dL (7-18)
[2024-10-04 07:49] VITALS: BP 119/66; PULSE 54; RESP 19; TEMP 98; O2SAT 99
[2024-10-04 11:39] VITALS: BP 123/54; PULSE 63; RESP 18; TEMP 97.9; O2SAT 99
[2024-10-04 15:41] VITALS: BP 129/70; PULSE 82; RESP 19; TEMP 98.3; O2SAT 98
[2024-10-04 20:14] VITALS: BP 128/55; PULSE 68; RESP 18; TEMP 98.4; O2SAT 98
[2024-10-05 00:16] VITALS: BP 131/52; PULSE 98; RESP 17; TEMP 97.9; O2SAT 96
[2024-10-05 04:58] VITALS: BP 134/57; PULSE 61; RESP 17; TEMP 98.8; O2SAT 99
[2024-10-05 08:29] VITALS: BP 121/70; PULSE 67; RESP 17; TEMP 98.4; O2SAT 99
[2024-10-05 16:09] VITALS: BP 143/74; PULSE 64; RESP 18; TEMP 98.4; O2SAT 98
[2024-10-05 20:15] VITALS: BP 140/56; PULSE 73; RESP 19; O2SAT 94
[2024-10-06 07:24] LABS: BASOPHILS % (AUTO) 0.7 % (0.0-2.0); EOSINOPHILS % (AUTO) 3.7 % (1.0-6.0); HEMATOCRIT 28.2 % (36-46); HEMOGLOBIN 9.2 g/dL (12.0-16.0); LYMPHOCYTES # (AUTO) 2.2 K/uL (1.0-4.8); LYMPHOCYTES % (AUTO) 29.7 % (22.0-44.0); MEAN CORPUSCULAR HEMOGLOBIN 30.6 pg (26.0-34.0); MEAN CORPUSCULAR HGB CONC 32.6 G/dL (31.0-37.0); MEAN CORPUSCULAR VOLUME 94 fL (80-100); MONOCYTES # (AUTO) 0.6 K/uL (0.1-1.0); MONOCYTES % (AUTO) 7.8 % (2.0-9.0); NEUTROPHILS # (AUTO) 4.3 K/uL (1.8-7.7); NEUTROPHILS % (AUTO) 58.1 % (40.0-70.0); PLATELET COUNT (AUTO) 392 K/uL (150-450); RED CELL DISTRIBUTION WIDTH 16.3 % (11.5-14.5); WHITE BLOOD COUNT (AUTO) 7.3 K/uL (4.5-11.0)
[2024-10-06 07:40] LABS: ANION GAP 8 mmol/L (8-16); CALCIUM, TOTAL 9.6 mg/dL (8.8-10.5); CARBON DIOXIDE 28 mmol/L (22-29); CHLORIDE 102 mmol/L (98-107); CREATININE 0.95 mg/dL (0.60-1.30); GLOMERULAR FILTR. RATE CALC > 60 mL/min (>60); GLUCOSE,RANDOM 79 mg/dL (70-110); POTASSIUM 4.2 mmol/L (3.5-5.1); SODIUM SERUM 138 mmol/L (136-145); UREA NITROGEN, BLOOD 15 mg/dL (7-18)
[2024-10-06 08:00] VITALS: BP 131/87; PULSE 60; RESP 16; TEMP 97.9; O2SAT 100
[2024-10-06 11:54] VITALS: BP 131/64; PULSE 57; RESP 16; TEMP 97.5; O2SAT 100
== END 2024-10-06 17:45 | DRG 377 ==
LOC: EMS 05:08 → EDH 06:00 → 5N 06:45
PROVIDERS: ADMIT Internal Medicine; ATTEND Internal Medicine
PROC: 0DJ08ZZ Inspection of Upper Intestinal Tract, Via Natural or Artificial Opening Endoscopic (ICD-10-PCS; 2024-09-28)
PROC: 0DJD8ZZ Inspection of Lower Intestinal Tract, Via Natural or Artificial Opening Endoscopic (ICD-10-PCS; principal; 2024-09-28 12:15)
PROC: 30233N1 Transfusion of Nonautologous Red Blood Cells into Peripheral Vein, Percutaneous Approach (ICD-10-PCS; 2024-09-30)
DX: K57.31 Diverticulosis of large intestine without perforation or abscess with bleeding (principal); G93.41 Metabolic encephalopathy; E87.1 Hypo-osmolality and hyponatremia; K64.8 Other hemorrhoids; D63.8 Anemia in other chronic diseases classified elsewhere; Z86.73 Personal history of transient ischemic attack (TIA), and cerebral infarction without residual deficits; J44.9 Chronic obstructive pulmonary disease, unspecified; F01.50 Vascular dementia, unspecified severity, without behavioral disturbance, psychotic disturbance, mood disturbance, and anxiety; E66.9 Obesity, unspecified; I48.0 Paroxysmal atrial fibrillation; I11.0 Hypertensive heart disease with heart failure; I50.9 Heart failure, unspecified; F17.210 Nicotine dependence, cigarettes, uncomplicated; Z78.1 Physical restraint status; Z88.5 Allergy status to narcotic agent; Z68.31 Body mass index [BMI] 31.0-31.9, adult
CPT/HCPCS: 70450; 71045; 80048; 80053; 80076; 81003; 82550; 83880; 84443; 84484; 85025; 85610; 85730; 86850; 86900; 86901; 86923; 93005; 96361; 96374; 96375; 97110; 97116; 97162; 97167; 97530; 97535; 99285; J0171; J0282; J0461; J1200; J2250; J2310; J2405; J2470; J2704; J3010; J3490; J7030; J7050; J7060; P9016; 36415-L1; 36415-TC